=== PATIENT | female | born 1955 | race Caucasian/White ===

== ENCOUNTER 2016-08-16 13:21 | Observation (INO) ==
[2016-08-16] MEDS ORDERED: 0.9 % Sodium Chloride 1,000 ML IVC ONE (14:00)
--- NOTE | 2016-08-16 14:38 | Emergency Department Note ---
Disposition Clinical Impression: Tachycardia Chest pain Qualifiers: Chest pain type: unspecified Qualified Code(s): R07.9 - Chest pain, unspecified Disposition: Admitted As Inpatient Condition: Good Instructions: Chest Pain (ED) Referrals: Elda Graham CNP [Primary Care Provider] - Forms: Work/School Release, ED Satisfaction Letter Time of Disposition: 18:08 Syncope HPI - General Chief Complaint: ED General Medical Stated Complaint: Syncope,weakness, multiple complaints Time Seen by Provider: 08/16/16 13:37 Source: patient Mode of arrival: ambulatory Limitations: no limitations Nursing Notes Reviewed: Yes Vital Signs Reviewed: Yes - History of Present Illness HPI Narrative: Patient presents emergency room for evaluation of dizziness chest pressure and feeling like her heart is beating quickly. Patient was seen and evaluated at an outside facility on Monday and had a negative workup and was discharged home. Patient does not remember the details of that event. She had what she described as a syncopal event and underwent an outside emergency room for evaluation. Currently she is denying fevers chills nausea vomiting or diarrhea denies headache or vision changes main complaint chest pressure and dyspnea Pt Subjective Complaint: loss of consciousness Onset (ago): day(s) (3 days) Duration: second(s) Prodromal Symptoms: lightheaded Witnessed: no Context: at rest Injuries Sustained Associated with Event: none Current Symptoms: back to baseline History: none, prior work-ups Treatments prior to arrival: none - Related Data Allergies Allergy/AdvReac Type Severity Reaction Status Date / Time tramadol AdvReac See Verified 08/16/16 13:31 Comments All systems ED: reviewed and negative except as stated. Constitutional: Denies: fever Cardiovascular: Reports: chest pain, palpitations. Denies: dyspnea on exertion Respiratory: Denies: cough, dyspnea, wheezes Gastrointestinal: Denies: abdominal pain, nausea, vomiting, diarrhea Genitourinary: Denies: urgency, dysuria, frequency Musculoskeletal: Denies: back pain Neurological: Denies: headache Past Medical History - Past Medical History Attestation: Yes The following information was validated with the patient. Source: patient Medical history: Reports: hyperlipidemia, hypertension - Social History Smoking Status: Current every day smoker Physical Exam - General Limitations: no limitations General appearance: alert, in no apparent distress - Head Head exam: atraumatic, normocephalic, normal inspection - Neck Neck exam: Present: normal inspection, full ROM, trachea midline - Chest Chest inspection: Present: normal inspection, symmetric chest wall rise. Absent : tenderness - Respiratory Respiratory exam: Present: normal lung sounds bilaterally. Absent: respiratory distress, wheezes - Cardiovascular Cardiovascular exam: Present: normal rhythm, tachycardia, normal heart sounds. Absent: systolic murmur, diastolic murmur - Abdominal Exam Abdominal exam: Present: soft, Non-Tender, normal bowel sounds. Absent: tenderness, distention, guarding, rebound, rigidity, Peres's sign, Rovsing's sign, tenderness at McBurney's Point - Extremities Exam Extremities exam: Present: normal inspection, full ROM. Absent: tenderness - Back Exam Back exam: Present: normal inspection, full ROM. Absent: tenderness - Neurological Exam Neurological exam: Present: alert, oriented X3, CN II-XII intact, normal gait - Psychiatric Psychiatric exam: Present: normal affect, normal mood - Skin Skin exam: Present: warm, dry, intact, normal color Course Course Narrative: Patient seen and examined the time of arrival. See history of present illness. 61-year-old female presents emergency room with complaint of dizziness. She was seen in outside facility 3 days ago and had workup and evaluation for syncope. She was discharged home at that time the treatment of a lab abnormalities abnormalities as well as the syncopal event. Patient was discharged home and does not remember any of the workup or evaluation was done at the outside facility. She does describe a use of marijuana on a history of opioid abuse. She has not been receiving pain medication and has not used marijuana in over 3 weeks according to her. Patient presents here today with dizziness along with chest pressure and pain over the last 24 hours. She denies any trauma or injuries. She is alert and oriented 3. Head is atraumatic. Pupils are equal round reactive to light. Extraocular muscles are intact. She is in no specific acute distress at this time. Vital signs are reviewed she is tachycardic but otherwise the rest of her vitals are normal. She is afebrile. Abdomen soft nontender nondistended. She was all 4 extremities with purpose. She has palpable radial DP and PT pulses bilaterally. No signs of pitting edema. Patient to have cardiac evaluation chest x-ray EKG and troponin ordered this time. Urinalysis also ordered. Fluid hydration be given for possible dehydration. Patient will most likely need further evaluation and management. Disposition pending workup and treatment course - Reevaluation(s) Reevaluation #1: Labs are reviewed and are stable patient does not have any acute signs of infection. Troponin is negative. EKG shows sinus tachycardia with no other acute abnormalities. Patient at this point will have CT AngioJet performed for persistent tachycardia. No other acute pathology issues noted CT angiogram. Patient's heart rate has come down from 129 2 1:15 will continue to monitor repeat fluid boluses given as needed. Patient is concerning with medical history coronary artery disease as well as syncopal event and tachycardia. She will most likely require admission to the hospital. Discussion will be have the patient will see imaging study is resulted Time: 16:34 Reevaluation #2: Patient accepted by the hospitalist for evaluation of tachycardia and chest discomfort. Recommendation for aspirin and Lipitor started here in the emergency room. No other acute issues this time patient be completed with the admission process of this time Time: 18:05 Vital Signs Temperature 97.5 F L 08/16/16 13:28 Pulse Rate 129 08/16/16 13:28 Respiratory Rate 18 08/16/16 13:28 Blood Pressure 114/93 08/16/16 13:28 O2 Sat by Pulse Oximetry 98 08/16/16 13:28 Temperature 97.5 F L 08/16/16 13:28 Pulse Rate 85 08/16/16 16:55 Respiratory Rate 16 08/16/16 16:55 Blood Pressure 134/58 08/16/16 16:55 O2 Sat by Pulse Oximetry 96 08/16/16 16:55 Oxygen Delivery Oxygen Delivery Room Air Syncope - MDM Narrative Medical decision making narrative: Syncope, chest pain, tachycardia - Medical Records Medical records reviewed: Yes I reviewed the patient's medical records. - Lab Data Lab results reviewed: Yes I reviewed the patient's lab results. Result diagrams: 08/16/16 14:24 08/16/16 14:24 Lab Results 08/16/16 08/16/16 08/16/16 Range/Units 14:24 14:24 14:24 WBC 7.9 (4.3-11.1) K/mcL RBC 4.68 (3.82-4.97) M/mcL Hgb 14.2 (11.5-15.4) g/dL Hct 42.9 (35.3-44.9) % MCV 91.7 (83.0-100.0) fL MCH 30.3 (28.0-33.3) pg MCHC 33.1 (31.6-35.5) g/dL RDW 14.3 (11.5-14.5) % Plt Count 285 (140-400) K/mcL MPV 10.5 (9.4-12.4) fL Immature Gran % 0.8 (0-4) % Seg Neutrophils % 62.7 % Lymphocytes % 25.8 % Monocytes % 9.7 % Eosinophils % 0.1 % Basophils % 0.9 % Neutrophils # 5.0 (1.6-8.9) K/mcL Lymphocytes # 2.0 (0.6-4.6) K/mcL Monocytes # 0.8 (0.0-1.3) K/mcL Eosinophils # 0.0 (0.0-0.6) K/mcL Basophils # 0.1 (0.0-0.2) K/mcL PT 11.7 (9.4-12.1) Seconds INR 1.1 APTT 30.4 (26.0-36.0) Seconds Sodium 138 (136-145) mEq/L Potassium 3.5 (3.5-4.5) mEq/L Chloride 106 (98-109) mEq/L Carbon Dioxide 19 (19-29) mEq/L BUN 18 (7-20) mg/dL Creatinine 1.28 H (0.57-1.11) mg/dL Est GFR ( Amer) 51 L (> 60) Est GFR (Non-Af Amer) 42 L (> 60) BUN/Creatinine Ratio 14 (6-26) Glucose 201 H (70-99) mg/dL Calculated Osmolality 294 (280-300) Calcium 9.4 (8.6-10.8) mg/dL Troponin I (0-0.03) ng/mL Urine Color (Yellow) Urine Clarity (Clear) Urine pH (5.0-8.0) pH Units Ur Specific [place] (1.010-1.025) Urine Protein (Neg-Trace) mg/dL Urine Glucose (UA) (Normal) mg/dL Urine Ketones (Negative) mg/dL Urine Blood (Negative) Urine Nitrite (Negative) Urine Bilirubin (Negative) Urine Urobilinogen (Normal) mg/dL Ur Leukocyte Esterase (Negative) Urine Microscopic RBC Urine Microscopic WBC (0-3) per hpf Ur Squamous Epith Cells (None-Few) per lpf Urine Bacteria (None-Few) per hpf Hyaline Casts (None-Few) per lpf Urine Opiates Screen (Onitja=322) ng/mL Ur Barbiturates Screen (Phtrkf=155) ng/mL Ur Phencyclidine Scrn (Cutoff=25) ng/mL Ur Amphetamines Screen (Opujfb=4750) ng/mL U Benzodiazepines Scrn (Jwbwou=512) ng/mL Urine Cocaine Screen (Cutoff= 300) ng/mL U Marijuana (THC) Screen (Cutoff = 50) ng/mL 08/16/16 08/16/16 08/16/16 Range/Units 14:24 15:00 15:00 WBC (4.3-11.1) K/mcL RBC (3.82-4.97) M/mcL Hgb (11.5-15.4) g/dL Hct (35.3-44.9) % MCV (83.0-100.0) fL MCH (28.0-33.3) pg MCHC (31.6-35.5) g/dL RDW (11.5-14.5) % Plt Count (140-400) K/mcL MPV (9.4-12.4) fL Immature Gran % (0-4) % Seg Neutrophils % % Lymphocytes % % Monocytes % % Eosinophils % % Basophils % % Neutrophils # (1.6-8.9) K/mcL Lymphocytes # (0.6-4.6) K/mcL Monocytes # (0.0-1.3) K/mcL Eosinophils # (0.0-0.6) K/mcL Basophils # (0.0-0.2) K/mcL PT (9.4-12.1) Seconds INR APTT (26.0-36.0) Seconds Sodium (136-145) mEq/L Potassium (3.5-4.5) mEq/L Chloride (98-109) mEq/L Carbon Dioxide (19-29) mEq/L BUN (7-20) mg/dL Creatinine (0.57-1.11) mg/dL Est GFR ( Amer) (> 60) Est GFR (Non-Af Amer) (> 60) BUN/Creatinine Ratio (6-26) Glucose (70-99) mg/dL Calculated Osmolality (280-300) Calcium (8.6-10.8) mg/dL Troponin I 0.00 (0-0.03) ng/mL Urine Color Yellow (Yellow) Urine Clarity Cloudy A (Clear) Urine pH 5.5 (5.0-8.0) pH Units Ur Specific [place] 1.021 (1.010-1.025) Urine Protein 30 H (Neg-Trace) mg/dL Urine Glucose (UA) Normal (Normal) mg/dL Urine Ketones Negative (Negative) mg/dL Urine Blood Negative (Negative) Urine Nitrite Negative (Negative) Urine Bilirubin Negative (Negative) Urine Urobilinogen Normal (Normal) mg/dL Ur Leukocyte Esterase Small H (Negative) Urine Microscopic RBC Test Not Performed Urine Microscopic WBC 5-15 H (0-3) per hpf Ur Squamous Epith Cells Many H (None-Few) per lpf Urine Bacteria Many H (None-Few) per hpf Hyaline Casts Few (None-Few) per lpf Urine Opiates Screen Positive H (Hnnxhf=943) ng/mL Ur Barbiturates Screen Negative (Rtcicb=850) ng/mL Ur Phencyclidine Scrn Negative (Cutoff=25) ng/mL Ur Amphetamines Screen Negative (Fhlwqi=8206) ng/mL U Benzodiazepines Scrn Negative (Lanxfu=381) ng/mL Urine Cocaine Screen Negative (Cutoff= 300) ng/mL U Marijuana (THC) Screen Positive H (Cutoff = 50) ng/mL - Radiology Data Radiology results reviewed: Yes I reviewed the patient's radiology results. Chest x-ray is negative for acute pathology. CT of the head is negative for acute intracranial related issue. CT angios pending - EKG Data EKG attestation: Yes I reviewed and interpreted this EKG. EKG shows normal: sinus rhythm, axis, intervals, QRS complexes, ST-T waves Rate: tachycardia Rhythm: NSR [place]/QRS: normal When compared to previous EKG there are: no significant changes Interpretation: no acute changes, unchanged when compared to prior tracing (date )
[2016-08-16 14:47] LABS: Calcium 9.4 mg/dL (8.6-10.8); Potassium 3.5 mEq/L (3.5-4.5)
[2016-08-16 14:51] LABS: INR 1.1; Prothrombin Time 11.7 Seconds (9.4-12.1)
[2016-08-16 14:53] LABS: Activated Partial Thrombo Time 30.4 Seconds (26.0-36.0)
[2016-08-16 14:55] LABS: Basophils # 0.1 K/mcL (0.0-0.2); Basophils % 0.9 %; Eosinophils % 0.1 %; Hematocrit 42.9 % (35.3-44.9); Hemoglobin 14.2 g/dL (11.5-15.4); Immature Granulocytes % 0.8 % (0-4); Lymphocytes % 25.8 %; Mean Corpuscular HGB Conc 33.1 g/dL (31.6-35.5); Mean Corpuscular Hemoglobin 30.3 pg (28.0-33.3); Mean Corpuscular Volume 91.7 fL (83.0-100.0); Mean Platelet Volume 10.5 fL (9.4-12.4); Monocytes # 0.8 K/mcL (0.0-1.3); Monocytes % 9.7 %; Platelet Count 285 K/mcL (140-400); Red Blood Count 4.68 M/mcL (3.82-4.97); Red Cell Distribution Width 14.3 % (11.5-14.5); Segmented Neutrophils % 62.7 %
[2016-08-16 15:12] LABS: Bilirubin,Urine Negative (Negative); Blood,Urine Negative (Negative); Clarity,Urine Cloudy (Clear); Color,Urine Yellow (Yellow); Glucose,Urine (UA) Normal (Normal); Ketones,Urine Negative (Negative); Leukocyte Esterase,Urine Small (Negative); Nitrite,Urine Negative (Negative); PH,Urine 5.5 pH Units (5.0-8.0); Protein,Urine 30 mg/dL (Neg-Trace); Specific Gravity,Urine 1.021 (1.010-1.025); Urobilinogen,Urine Normal (Normal)
[2016-08-16 15:13] LABS: Bacteria,Urine Many per hpf (None-Few); Hyaline Casts,Urine Few per lpf (None-Few); Squamous Epithelial Cell,Urine Many per lpf (None-Few)
[2016-08-16 15:15] LABS: Amphetamine Screen,Urine Negative ng/mL (Cutoff=1000); Barbiturate Screen,Urine Negative ng/mL (Cutoff=200); Benzodiazepines Screen,Urine Negative ng/mL (Cutoff=200); Cannabinoid Screen,Urine Positive ng/mL (Cutoff = 50); Cocaine Screen,Urine Negative ng/mL (Cutoff= 300); Opiate Screen,Urine Positive ng/mL (Cutoff=300); Phencyclidine Screen,Urine Negative ng/mL (Cutoff=25)
--- NOTE | 2016-08-16 15:18 | Emergency Department Note ---
START Narrative - START START: I examined this patient and my medical decision-making was reviewed with the [employer]OC[employer]ATE/PA/Advanced Practice Nurse/Resident Physician. I agree with the documented findings, disposition and treatment plan as described except to the extent set forth below. ED attending note: Patient seen with emergency medicine resident Dr. Orozco. Please see a copy of his note for details of the H&P, evaluation, management and disposition of this patient. We independently had [id number] contact with the patient Briefly: A 61-year-old female sick blood so far a wall sitting down. Is awake and alert at this point in time. Workup in a bloodless ER down in [place] over the weekend. Patient's neurological nonfocal tachycardic at rest 129. Normotensive. Labs and imaging pending. Patient stable. Disposition pending
[2016-08-16] MEDS ORDERED: Aspirin 81 MG TAB.CHEW PO ONE (18:06)
[2016-08-16] MEDS ORDERED: *HR* Morphine 2 MG/ML SYRINGE IVP PRN (19:55)
[2016-08-16] MEDS ORDERED: Acetaminophen 325 MG TABLET PO PRN (19:55)
[2016-08-16] MEDS ORDERED: Ondansetron 4 MG/2 ML VIAL IVP PRN (19:55)
[2016-08-16] MEDS ORDERED: Naloxone 0.4 MG/ML INJ IVP PRN (19:55)
[2016-08-16] MEDS ORDERED: 0.9 % Sodium Chloride 1,000 ML IVC SCH (20:00)
--- NOTE | 2016-08-16 20:09 | Internal Med History&Physical ---
Date of Encounter: 08/16/16 Time of Encounter: 19:35 Assessment and Plan (1) Chest pain Current visit: Yes Status: Acute 1. Will cycle troponins, EKG's, and consult cardiology. 2. Pt had LHC several years ago -- negative by history. 3. Pt. will need evaluation of RA mass prior to any further ischemic cardiac work-up. Qualifiers: Chest pain type: precordial pain Qualified Code(s): R07.2 - Precordial pain (2) Atrial mass Current visit: Yes Status: Acute 1. Will order MRI chest per Radiology recommendations. 2. Will order ECHO; may need GURU. 3. Consult cardiology for further guidance in working up the mass. (3) Tachycardia Current visit: Yes Status: Acute 1. Will continue home dose of beta mekhi; pt denies missing any doses. 2. CTA negative for PE. 3. Will start radha IVF hydration and hold diuretics. 4. Monitor hemodynamics. (4) DVT prophylaxis Current visit: Yes Status: Acute 1. Heparin SQ. Internal Medicine - H&P: HPI Chief complaint: chest pain; racing heartbeat Admitted From: Emergency Dept Plans for Post Hospital Care: Home History of present illness: Ms. Ray is a 61 year old female who presents with a 3 to 4 -day history of chest pain, palpitations, racing heartbeats, and one episode of syncope. Because symptoms persisted and did not improve, she came to ER for evaluation. Workup in the ER was negative except for some resting tachycardia. As part of her workup she underwent CT angiogram of the chest, which was negative for pulmonary embolus. 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 She was subsequently admitted to the hospitalist service. Upon my assessment of the patient in the ER, patient is resting comfortably and has no chest pain or palpitations. She denies any dyspnea. She does have resting tachycardia with a heart rate in the 110's to 120s. She denies any nausea, lightheadedness, or dizziness. She did have one episode of syncope 4 days ago which appears to be vasovagal by history. She states she was sitting down and when she stood up, she became lightheaded and dizzy and passed out. She does not have a history of recurrent syncope. She states she follows with cardiology and had a heart catheterization several years ago which revealed only plaque disease. Of note, she has a positive urine drug screen for opiates and marijuana. She states she used to use drugs but no longer uses drugs. She states that she only used marijuana. She denies any IV drug abuse or any cocaine use. Past Med Surg Social Fam HX - Past Medical History Source: patient, old records reviewed Medical history: hyperlipidemia, hypertension, other (Polycystic Kidney Disease) Psychiatric history: no psych history - Past Surgical History Surgical History: ERUM/BSO, other (Left heart Cath -- no PCI or stent) - Social History Smoking Status: Current every day smoker Alcohol use: none Drug use: marijuana Current living situation: Home - Independent Activity Level: Independent ambulation - Family History Mother Living Status: Still Living Hx Family Cardiac Disorders: No Hx Family Respiratory Disorders: No Hx Family Neurologic Disorders: Yes (dementia) Father Living Status: Age at : 47 Cause of : CT Hx Family Cardiac Disorders: Yes Hx Family Respiratory Disorders: No Internal Medicine - H&P: Meds Aspirin 81 mg PO DAILY 08/16/16 [History] Cholecalciferol (D-3) [Vitamin D] 5,000 unit PO DAILY 08/16/16 [History] Cyclobenzaprine [Flexeril] 10 mg PO TID 08/16/16 [History] Gabapentin [Neurontin] 800 mg PO TID 08/16/16 [History] Hydrochlorothiazide 25 mg PO DAILY 08/16/16 [History] Lisinopril [Zestril] 10 mg PO DAILY 08/16/16 [History] Metoprolol [Lopressor] 25 mg PO BID 08/16/16 [History] Omeprazole [PriLOSEC] 40 mg PO DAILY 08/16/16 [History] Simvastatin [Zocor] 40 mg PO HS 08/16/16 [History] Allergies tramadol Adverse Reaction (Verified 08/16/16 13:31) See Comments Pt states her legs swell and she can't urinate when taking this medication - Constitutional Constitutional: no chills, no fever(s) - EENT Eyes: no blurry vision, no change in vision Ears: no ear pain, no tinnitus Nose, mouth and throat: no nasal congestion, no sinus pressure, no sore throat - Cardiovascular Cardiovascular ROS IM: chest pain, lightheadedness, palpitations, syncope, no dyspnea, no dyspnea on exertion, no edema, no irregular heart rhythm - Respiratory Respiratory: no cough, no dyspnea, no hemoptysis, no dyspnea on exertion, no wheezing - Gastrointestinal Gastrointestinal: no abdominal pain, no diarrhea, no hematemesis, no hematochezia, no melena, no vomiting - Genitourinary Genitourinary: no dysuria, no flank pain, no hematuria - Musculoskeletal Musculoskeletal ROS IM: back pain, no arthralgias, no joint swelling - Integumentary Integumentary IM: no rash, no jaundice - Neurological Neurological ROS: no focal weakness, no frequent falls, no headache(s) - Psychiatric Psychiatric: no anxiety, no depression - Endocrine Endocrine IM: no cold intolerance, no heat intolerance - Hematologic/Lymphatic Hematologic/Lymphatic: no easy bruising, no lymphadenopathy - Allergic/Immunologic Allergic/Immunologic: no wheezing, no GI upset with certain foods - Constitutional Vitals: Temp Pulse Resp BP Pulse Ox 97.5 F L 85 18 126/81 96 08/16/16 13:28 08/16/16 18:24 08/16/16 19:20 08/16/16 19:20 08/16/16 18:24 General appearance: Present: cooperative, A&O X 3, pleasant, no acute distress, answers questions appropriately - Head Head exam: Present: atraumatic, normal inspection - Expanded Head Exam Head exam expanded: Absent: abrasion, contusion, general tenderness - Eye Eye exam: Present: EOMI, normal appearance, PERRL. Absent: scleral icterus Pupils: Present: normal accommodation - ENT ENT exam: Present: mucous membranes moist, normal exam - Neck Neck exam general surgery: Present: full ROM, normal inspection, supple. Absent : lymphadenopathy, tenderness - Expanded Neck Exam Neck exam: Absent: carotid bruit - Respiratory Respiratory exam: Present: CTAB. Absent: chest wall tenderness, rales, respiratory distress, rhonchi, wheezes - Cardiovascular Cardiovascular exam: Present: RRR, +S1, +S2, tachycardia (HR 110's). Absent: diastolic murmur, JVD, systolic murmur - GI/Abdominal GI/Abdominal exam: Present: normal bowel sounds, soft. Absent: hepatomegaly, mass, splenomegaly, tenderness - Extremities Exam Extremities exam: Present: full ROM, normal capillary refill, warm. Absent: calf tenderness, joint swelling, pedal edema - Back Exam Back exam: Present: normal inspection. Absent: CVA tenderness (L), CVA tenderness (R) - Neurological Exam Neurological exam: Present: alert, CN II-XII intact, oriented X3, no focal deficits - Psychiatric Psychiatric exam: Present: normal affect, normal mood - Skin Skin exam: Present: dry, warm. Absent: rash Internal Med - H&P Results - Labs CBC & Chem 7: 08/16/16 14:24 08/16/16 14:24 - EKG Data -: EKG Interpreted by Myself EKG shows normal: sinus rhythm Rate: tachycardia - EKG Data Prior EKG available for review: yes When compared to previous EKG: there is no significant change EKG comments: 08/16/16 20:15 Sinus tachycardia; no acute findings otherwise - Diagnostic Studies Chest x-ray Status: image reviewed by me (lungs clear; negative)
[2016-08-16] MEDS: Gabapentin 400 MG CAPSULE PO SCH (21:14)
[2016-08-16] MEDS: *HR* Heparin 5,000 UNIT/ML VIAL SQ SCH (21:15)
[2016-08-17] MEDS ORDERED: 0.9 % Sodium Chloride 1,000 ML IVC ONE (00:39)
[2016-08-17 05:52] LABS: Basophils # 0.1 K/mcL (0.0-0.2); Basophils % 0.8 %; Eosinophils # 0.2 K/mcL (0.0-0.6); Eosinophils % 2.9 %; Hematocrit 37.7 % (35.3-44.9); Immature Granulocytes % 0.6 % (0-4); Lymphocytes % 41.3 %; Mean Corpuscular HGB Conc 31.6 g/dL (31.6-35.5); Mean Corpuscular Hemoglobin 29.5 pg (28.0-33.3); Mean Corpuscular Volume 93.5 fL (83.0-100.0); Monocytes # 0.9 K/mcL (0.0-1.3); Monocytes % 12.3 %; Neutrophils # 3.1 K/mcL (1.6-8.9); Platelet Count 230 K/mcL (140-400); Red Blood Count 4.03 M/mcL (3.82-4.97); Red Cell Distribution Width 14.4 % (11.5-14.5); Segmented Neutrophils % 42.1 %
[2016-08-17 05:55] LABS: Hemoglobin 11.9 g/dL (11.5-15.4)
[2016-08-17] MEDS: *HR* Heparin 5,000 UNIT/ML VIAL SQ SCH ×2 (06:01→17:40)
[2016-08-17 06:20] LABS: Chol/HDL Ratio 5.1 (0-4.9); Cholesterol 96 mg/dL (< 200); HDL Cholesterol 19 mg/dL (40-59); LDL Cholesterol,Calculated 50 mg/dL (0-99); Magnesium 1.7 mg/dL (1.6-2.6); Triglycerides 133 mg/dL (< 150)
[2016-08-17] MEDS: 0.9 % Sodium Chloride 1,000 ML IVC SCH ×3 (08:00→22:03)
[2016-08-17] MEDS: Cholecalciferol (D-3) 1,000 UNIT TABLET PO SCH (08:01)
[2016-08-17] MEDS: Aspirin 81 MG TAB.CHEW PO SCH (08:01)
[2016-08-17] MEDS: Gabapentin 400 MG CAPSULE PO SCH ×3 (08:01→22:03)
--- NOTE | 2016-08-17 08:38 | Cardiology Consult Note ---
<Fredis Bertrand - Last Filed: 08/17/16 09:33> Date of Encounter: 08/17/16 Time of Encounter: 08:33 Assessment and Plan (1) Atrial mass Current Visit: Yes Status: Acute CT scan showed: A fatty mass within the right atrium measuring 5.4 x 3.7 cm appears to be mildly enhancing and is suspicious for an atypical lipomatous tumor, possibly a liposarcoma. The mass is narrowing the superior vena cava and right superior pulmonary vein. Recommend nonemergent MRI for further evaluation A prominent right hilar lymph node measuring 1.8 x 1.7 cm is nonspecific and could be reactive or metastatic. TTE 01/2014 showed no evidence of right atrial mass. GURU is recommended for further evaluation. Indication, risk, and benefits discussed. Pt agrees. Pt has documented history of IV drug use but denies to me. Drug screen positive for opiates and marijuana. Check blood cultures to r/o endocarditis. She denies fevers or chills. WBC are normal. We will follow with you. (2) Chest pain Current Visit: Yes Status: Acute Troponin negative. Ekg shows ST with no ST changes. LHC in 2013 showed minimal CAD. Stress test was ordered for pre-operative clearance in the out-pt setting. We will hold off on stress test until further evaluation of right atrial mass. Qualifiers: Chest pain type: precordial pain Qualified Code(s): R07.2 - Precordial pain (3) Tachycardia Current Visit: Yes Status: Acute Now NSR. Likely hypovolemic, mild RIVERA. 24 hour telemetry shows avg HR 89 bpm. maximum was 140 [address]. No VT or significant bradycardia or pauses. Discussion w patient/family: The assessment and plan as outlined above was discussed with the patient and/or family members who expressed understanding and agreement. All questions were answered. Thank you for involving us in the care of your patient. Please call with any questions. History of Present Illness Consult date: 08/17/16 Requesting physician: Bertrand Vega Consult reason: Right atrial mass Chief complaint: Chest pain with exertion History of present illness: Ms. Ray is a 61 year old female with a history of hypertension, diabetes, HLD , and tobacco use who presents with chest pain for one week. She c/o intermittent, non-radiating, midsternal chest pressure that occurs with ambulation and stress. she associates her chest pain with mild SOB, diaphoresis , and nausea. She also c/o syncopal episode after walking to the bathroom one week ago. She was seen at an out hospital and discharged home with out-pt f/u. She denies any cardiac testing at that time. Previous cardiac testing: LHC 01/2014- minimal CAD, EF 55%, severe diastolic dysfunction. Elevated LVEDP at 40. TTE 01/2014-LVEF 60%. Normal left ventricular size and systolic function, mild diastolic dysfunction of the left ventricle. Normal right ventricular size and function. No significant valvular dysfunction. Mildly calcified noncoronary cusp.Estimated RVSP was 36 mmHg.Mild pulmonary hypertension. Past Med Surg Social Fam HX - Past Medical History Medical history: diabetes, hyperlipidemia, hypertension Psychiatric history: no psych history - Past Surgical History Surgical History: hysterectomy - Social History Smoking Status: Current every day smoker Alcohol use: none Drug use: marijuana - Family History Mother Living Status: Still Living Hx Family Cardiac Disorders: No Hx Family Respiratory Disorders: No Hx Family Neurologic Disorders: Yes (dementia) Father Living Status: Age at : 47 Cause of : [place] Hx Family Cardiac Disorders: Yes Hx Family Respiratory Disorders: No Medications and Allergies Aspirin 81 mg PO DAILY 08/16/16 [History] Cholecalciferol (D-3) [Vitamin D] 5,000 unit PO DAILY 08/16/16 [History] Cyclobenzaprine [Flexeril] 10 mg PO TID 08/16/16 [History] Gabapentin [Neurontin] 800 mg PO TID 08/16/16 [History] Hydrochlorothiazide 25 mg PO DAILY 08/16/16 [History] Lisinopril [Zestril] 10 mg PO DAILY 08/16/16 [History] Metoprolol [Lopressor] 25 mg PO BID 08/16/16 [History] Omeprazole [PriLOSEC] 40 mg PO DAILY 08/16/16 [History] Simvastatin [Zocor] 40 mg PO HS 08/16/16 [History] Allergies tramadol Adverse Reaction (Verified 08/16/16 13:31) See Comments Pt states her legs swell and she can't urinate when taking this medication All Systems Review: A 10-system review of systems was performed and is negative for pertinent findings except as documented above in the HPI. Physical Examination Vital Signs, Last 4 Hours Temp Pulse Resp BP Pulse Ox 08/17/16 07:24 97.8 F 84 16 107/75 95 08/17/16 04:58 97.9 F 89 14 108/76 95 General: Conversant, No Apparent Distress, Other (Obese female) HEENT: Atraumatic, Normocephaly, Mucus Membranes Moist, Other (Missing teeth) Neck: No JVD, Normal carotid pulses Cardiac: Reg Rate and Rhythm, Normal S1 and S2, No Murmur Lungs: Normal Breath Sounds, No Wheeze, Rales, Rhonchi Neuro: Alert and responsive, No focal deficits noted Abdomen: Soft, Non-Tender Skin: No rashes noted on visualized skin Musculoskeletal: No Chest Wall Tenderness Extremities: No Clubbing, No Cyanosis, No Edema, Normal Pulses Results 08/17/16 03:59 08/17/16 03:59 Lab Results 08/16/16 08/17/16 08/17/16 20:21 03:59 03:59 WBC 7.3 Hgb 11.9 D Hct 37.7 Plt Count 230 Magnesium Troponin I 0.01 0.01 08/17/16 03:59 WBC Hgb Hct Plt Count Magnesium 1.7 Troponin I Chest X-Ray 08/16/16 13:55 IMPRESSION: No acute cardiopulmonary disease. D/ / 08/16/2016 14:47:49 Mynor Saucedo MD / jesús Interpreting Provider: Mynor Saucedo MD Head CT 08/16/16 14:03 IMPRESSION: No acute intracranial abnormality. D/ / Roderick Bowen MD / Roderick Bowen MD Interpreting Provider: Roderick Bowen MD Chest CTA 08/16/16 15:33 IMPRESSION: 1. No evidence of pulmonary embolism or acute pulmonary abnormality. 2. A fatty mass within the right atrium measuring 5.4 x 3.7 cm appears to be mildly enhancing and is suspicious for an atypical lipomatous tumor, possibly a liposarcoma. The mass is narrowing the superior vena cava and right superior pulmonary vein. Recommend nonemergent MRI for further evaluation 3. A prominent right hilar lymph node measuring 1.8 x 1.7 cm is nonspecific and could be reactive or metastatic. 4. Mild emphysema. RECOMMENDATIONS: Nonemergent MRI of the chest. D/ / 08/16/2016 16:56:40 El Chen MD / Cathryn Michel Interpreting Provider: El Chen MD - Imaging and Cardiology Echo: report reviewed (02/08/2014-LVEF 60%. Normal left ventricular size and systolic function. There is evidence of mild diastolic dysfunction of the left ventricle. Normal right ventricular size and function. No significant valvular dysfunction. Mildly calcified noncoronary cusp Estimated RVSP was 36 mmHg. Mild pulmonary hypertension. Clinical correlation is suggested.) Cardiac cath: report reviewed Consult Discharge Plan - Plan Referrals: Elda Graham, LICENSED CLINICIAN [Primary Care Provider] - <Pelon Meier - Last Filed: 08/17/16 09:59> Date of Encounter: 08/17/16 Assessment and Plan Discussion w patient/family: The assessment and plan as outlined above was discussed with the patient and/or family members who expressed understanding and agreement. All questions were answered. Thank you for involving us in the care of your patient. Please call with any questions. History of Present Illness History of present illness: Ms. Ray is a 61 year old female All Systems Review: A 10-system review of systems was performed and is negative for pertinent findings except as documented above in the HPI. Physical Examination Vital Signs, Last 4 Hours Temp Pulse Resp BP Pulse Ox 08/17/16 07:24 97.8 F 84 16 107/75 95 Results 08/17/16 03:59 08/17/16 03:59 Lab Results 08/16/16 08/17/16 08/17/16 20:21 03:59 03:59 WBC 7.3 Hgb 11.9 D Hct 37.7 Plt Count 230 Sodium Potassium Chloride Carbon Dioxide BUN Creatinine Glucose Calcium Magnesium Troponin I 0.01 0.01 08/17/16 03:59 WBC Hgb Hct Plt Count Sodium 142 Potassium 3.3 L Chloride 110 H Carbon Dioxide 20 BUN 16 Creatinine 0.97 Glucose 113 H Calcium 8.2 L Magnesium 1.7 Troponin I - Attending Attestation For this encounter, I have reviewed the EGG PROCESSING SUPERVISOR or PA documentation, treatment plan, and medical decision making; and I have had face to face time with this patient. pt gives a history of CP, sob, and platypnea does give a history of night sweats and weight loss CT scan showed a RA mass compressing SVC and PV Pt 's cath showed non obstructive CAD: according to pt VSS Lungs; clear to auscultation and precussion CVS: RRR Ext Warm, no edema EKG reviewed by me shows no acute changes, non specficic ST T changes plan: GURU today check blood cultures no indications for cath at present Thank you
[2016-08-17 09:11] LABS: BUN/Creatinine Ratio 16 (6-26); Blood Urea Nitrogen 16 mg/dL (7-20); Calcium 8.2 mg/dL (8.6-10.8); Carbon Dioxide 20 mEq/L (19-29); Chloride 110 mEq/L (98-109); Glucose 113 mg/dL (70-99); Osmolality,Calculated 296 (280-300); Potassium 3.3 mEq/L (3.5-4.5); Sodium 142 mEq/L (136-145); eGFR For African Americans > 60 (> 60); eGFR For Non-African Americans 58 (> 60)
--- NOTE | 2016-08-17 10:29 | Electrocardiograph Report ---
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
--- NOTE | 2016-08-17 11:37 | ECHO - Doppler Report ---
Echocardiogram Name: Adriana Ray Date of Study: 08/17/2016 Date: 1955 Ht: 64.0 in Medical Record#: [id number] Age: 61 Wt: 201.0 lb Gender: Female BSA: 1.96 Order #: [id number] Location: [facility] Room #: [employer] [facility] [place] Physician: Aki Batista DO, NAHUM, CAREY DAHL Lead Network Engineer: Keyur Pacheco RDCS Ordering Physician: Bertrand Vega MD Primary Physician: Elda Graham CNP Indications: Right atrial mass Impressions: LVEF 60-65%. Normal LV chamber size, wall thickness and function. Mild left ventricular diastolic dysfunction. Normal right ventricular structure and function. Normal right atrial size. No obvious right atrial mass identified. Prominent lipomatous appearing interatrial septum. Mild aortic regurgitation. No evidence of pulmonary hypertension. Consider a GURU to further evaluate if clinically indicated. Left Ventricular Wall Motion: Rest Echo Findings All wall segments showed normal motion. Findings: Study Quality * Technically adequate exam. ECG Findings * Normal sinus rhythm. Left Ventricle * LVEF 60-65%. * Normal LV chamber size, wall thickness and function. * Mild left ventricular diastolic dysfunction. Right Ventricle * Normal right ventricular structure and function. Left Atrium * Normal left atrial size. Right Atrium * Normal right atrial size. No obvious right atrial mass identified. Interatrial Septum * Lipomatous appearing interatrial septum. * No evidence of interatrial shunting by color Doppler. Aortic Valve * Trileaflet aortic valve. * Focally calcified noncoronary cusp. * Mild aortic regurgitation. * No aortic stenosis. Mitral Valve * Normal mitral valve structure and function. * No mitral stenosis. * Trace mitral regurgitation. Tricuspid Valve * Normal tricuspid valve structure and function. * Trace tricuspid regurgitation. * No evidence of pulmonary hypertension. Pulmonic Valve * Normal pulmonic valve structure and function. * No pulmonic regurgitation. Aorta * Normally sized aortic root. Pericardium * The pericardium appears normal. IVC * Normal IVC dimensions and inspiratory collapse. Pulmonary Artery * Normal visualized portions of the main pulmonary artery. History Hypertension Hypercholesteremia History of Smoking Years 50 Packs 1 Family History of CAD History of CAD/PTCA 02/08/14 a Previous Echo was performed. Measurements: BP: 107/ 75 2D Normal Values RVIDd: 2.46 cm <2.7 cm IVSd: 1.10 cm 0.6 - 1.0 cm LVIDd: 4.67 cm 3.7 - 5.6 cm LVPWd: 1.10 cm 0.6 - 1.1 cm LVIDs: 2.76 cm 1.5 - 3.6 cm AO: 2.40 cm < 4.0 cm LA: 3.60 cm 2.0 - 4.0cm %FS: 40.90 cm >25 % LA volume: 55 Mitral Valve Peak E:.86 m/sec Peak A:1.16 m/sec E/A Ratio:0.7 Peak E' Lat Boni:8.7 cm/s Peak E' Med Boni:5.11 cm/s E/E' Lat Ratio:9.9 E/E' Med Ratio:16.9 Aortic Valve AI pressure Half-time: 382.00 msec Tricuspid Valve TV Regurg Peak Grad: 18.00mmHg TV Regurg Peak Boni: 2.14m/sec Updated by Aki Batista DO, NAHUM, CAREY DAHL on 08/17/2016 11:30:22 AM electronically signed on 08/17/2016 11:33:55 AM with status of Final Wall Motion Parks: 1=Normal, 2=Hypokinesis, 3=Akinesis, 4=Dyskinesis, 5=Aneurysmal, 6=Hyperkinetic, X=Not Visualized (Blank)=Missing
--- NOTE | 2016-08-17 15:05 | Internal Med Progress Note ---
Date of Encounter: 08/17/16 Time of Encounter: 14:45 - Assessment and plan (1) Chest pain Current Visit: Yes Status: Acute Assessment and plan: Improved. Troponins negative. Cardiology consulted. Recommend evaluation of atrial abnormality for any stress test. Qualifiers: Chest pain type: precordial pain Qualified Code(s): R07.2 - Precordial pain (2) Atrial mass Current Visit: Yes Status: Acute Assessment and plan: 2-D echocardiogram does not show any mass. Prominent interatrial septum visualized. Cardiology recommends transesophageal echocardiogram for further evaluation. Moderate risk for complications (3) DVT prophylaxis Current Visit: Yes Status: Acute (4) Tachycardia Current Visit: Yes Status: Resolved Assessment and plan: Sinus tachycardia - Subjective Interval history: Patient is feeling better today her chest pain is improving. She denies any shortness of breath. No nausea or vomiting. No dizziness or light. No palpitations. - Constitutional Vitals: Temp Pulse Resp BP Pulse Ox 98.0 F 85 16 123/77 97 08/17/16 11:19 08/17/16 11:19 08/17/16 11:19 08/17/16 11:19 08/17/16 11:19 General appearance: Present: cooperative, A&O X 3, pleasant, no acute distress, answers questions appropriately - Respiratory Respiratory exam: Present: CTAB. Absent: accessory muscle use, rales, rhonchi, wheezes - Cardiovascular Cardiovascular exam: Present: RRR, +S1, +S2. Absent: diastolic murmur, gallop, rubs, systolic murmur - GI/Abdominal GI/Abdominal exam: Present: normal bowel sounds, soft, no peritoneal signs. Absent: distended, tenderness - Extremities Exam Extremities exam: Present: warm, radial pulses palpable and symetrical. Absent : calf tenderness, cyanotic, pedal edema Internal Medicine: Result - Labs CBC & Chem 7: 08/17/16 03:59 08/17/16 03:59 Labs: Short CBC 08/17/16 Range/Units 03:59 WBC 7.3 (4.3-11.1) K/mcL Hgb 11.9 D (11.5-15.4) g/dL Hct 37.7 (35.3-44.9) % Plt Count 230 (140-400) K/mcL Neutrophils # 3.1 (1.6-8.9) K/mcL BMP 08/17/16 03:59 Sodium 142 Potassium 3.3 L Chloride 110 H Carbon Dioxide 20 BUN 16 Creatinine 0.97 Glucose 113 H Calcium 8.2 L Cardiac Enzymes 08/16/16 08/17/16 Range/Units 20:21 03:59 Troponin I 0.01 0.01 (0-0.03) ng/mL - ABG Interpretation ABG results: PT/INR, D-dimer PT 11.7 Seconds (9.4-12.1) 08/16/16 14:24 Consult Discharge Plan - Plan Referrals: Elda Graham, ADJUNCT SOCIOLOGY PROFESSOR [Primary Care Provider] - - Attending Attestation This document has been at least partially created by [employer] recognition technology by Dr. Ryder. Errors in grammar, wording or other phrases may exist. If errors are found after the documentation is signed, they will be addressed individually in the addendum section of this document when appropriate.
[2016-08-18] MEDS: 0.9 % Sodium Chloride 1,000 ML IVC SCH (05:37)
[2016-08-18] MEDS: *HR* Heparin 5,000 UNIT/ML VIAL SQ SCH (05:38)
[2016-08-18] MEDS ORDERED: Tetracaine/Benzocaine/Butamben 200MG/SPRAY (100SPY/BOT) MM ONE (09:21)
[2016-08-18] MEDS ORDERED: 0.9 % Sodium Chloride 500 ML IVC ONE (09:21)
[2016-08-18] MEDS: *HR* FentaNYL (PF) 100 MCG/2 ML VIAL IVP PRN ×2 (10:20→10:25)
[2016-08-18] MEDS: *HR* Midazolam HCl 5 MG/5 ML VIAL IVP PRN ×3 (10:20→10:30)
--- NOTE | 2016-08-18 13:37 | Event Note ---
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 The mass is narrowing the superior vena cava and right superior pulmonary vein. Recommend nonemergent MRI for further evaluation. A prominent right hilar lymph node measuring 1.8 x 1.7 cm is nonspecific and could be reactive or metastatic. TTE yesterday showed EF 60-65%, no obvious right atrial mass. Did show lipomatous appearing inferolateral septum, enlarged superior portion. GURU was recommended and completed today. GURU confirms the lipomatous septum. It also reveals right atrial mass--unclear what the mass is. Recommend outpt cardiac MRI to further evaluate. Will coordinate order through cardiology office and get this scheduled with outpt follow-up after MRI is completed. Cardiology is signing off. Reconsult PRN. Okay for D/C from a cardiac standpoint.
[2016-08-18] MEDS: Gabapentin 400 MG CAPSULE PO SCH ×2 (13:44→14:23)
--- NOTE | 2016-08-18 14:42 | Discharge Summary ---
Date of Encounter: 08/18/16 Time of Encounter: 12:45 - Discharge Diagnosis (1) Chest pain Priority: Primary Status: Acute Qualifiers: Chest pain type: precordial pain Qualified Code(s): R07.2 - Precordial pain (2) Atrial mass Priority: Secondary Status: Acute (3) DVT prophylaxis Priority: Secondary Status: Acute (4) Tachycardia Priority: Secondary Status: Resolved - Discharge Medications Home Medications: Aspirin 81 mg PO DAILY 08/16/16 [History] Cholecalciferol (D-3) [Vitamin D] 5,000 unit PO DAILY 08/16/16 [History] Cyclobenzaprine [Flexeril] 10 mg PO TID 08/16/16 [History] Gabapentin [Neurontin] 800 mg PO TID 08/16/16 [History] Hydrochlorothiazide 25 mg PO DAILY 08/16/16 [History] Lisinopril [Zestril] 10 mg PO DAILY 08/16/16 [History] Metoprolol [Lopressor] 25 mg PO BID 08/16/16 [History] Omeprazole [PriLOSEC] 40 mg PO DAILY 08/16/16 [History] Simvastatin [Zocor] 40 mg PO HS 08/16/16 [History] Allergies/Adverse Reactions: Allergies tramadol Adverse Reaction (Verified 08/16/16 13:31) See Comments Pt states her legs swell and she can't urinate when taking this medication Procedures/tests Complete & Pending: Procedures Performed prior 72 hours Category Date Time Status ECG 12 lead ECG [ECG] AM 0600 Y 08/17/16 06:00 Ordered EV GURU transesophageal echo Routine Y 08/18/16 09:27 Completed EV echocardiogram Routine Y 08/17/16 19:55 Completed Date of admission: 08/16/16 18:17 Primary care physician: Elda Graham CNP Consults: 08/16/16 19:58 Consult to Physician [CONS] Routine Consulting Provider: Pelon Meier Reason for Consult: chest pain; tachycardia; atrial tumor Call Completed: No 08/17/16 07:24 Consult to Cardiology [CONS] Routine Comment: Consulting Provider: Sonal Mora Reason for Consult: Atrial tumor on CT Time Notified: 07:25 Call Completed: Yes Discharging clinician: Roney Ryder Anticipated date of discharge: 08/18/16 - Patient Status Disposition: Home, Self-Care Condition: Good Functional capacity at discharge: independent ambulation Overall status at discharge: patient is progressing back to baseline - Discharge Instructions Instructions: Chest Pain (DC) Follow Up With: Elda Graham CNP [Primary Care Provider] - Additional Instructions: Follow-up with cardiology in 1-2 weeks - Diet and Activity Activity: increase activity as tolerated Diet: advance to your usual diet, low fat, low cholesterol, low salt diet Hospital course: Ms. Ray is a 61 year old female with history of hypertension and hyperlipidemia who presented to the ER with complaints of chest pain, palpitations and an episode of syncope. She was evaluated in the ER and was found to have sinus tachycardia. She received IV fluids. Her tachycardia has since improved. She underwent a CT angiogram of the chest which showed a possible atrial mass. Cardiology was consulted. Patient's troponins were trended. They have been negative so far. Cardiology recommended transesophageal echocardiogram after transthoracic echocardiogram did not show any mass but showed a lipomatous interatrial septum. The transesophageal echocardiogram done today showed possible atrial mass. Cardiac MRI has been recommended and inspecting supervisor making arrangements for that to be done as outpatient. Currently the patient is chest pain-free. She is feeling much better and is stable to be discharged home with outpatient follow up with cardiology. Patient is a chronic smoker and has been counseled to quit smoking. She may need a stress test as outpatient after her cardiac MRI. - Time Spent with Patient Total time spent providing and/or coordinating discharge services: Greater than 30 minutes (35 min) - Constitutional Vitals: Temp Pulse Resp BP Pulse Ox 97.9 F 102 16 138/90 98 08/18/16 11:29 08/18/16 11:29 08/18/16 11:29 08/18/16 11:29 08/18/16 11:29 General appearance: Present: cooperative, A&O X 3, pleasant, no acute distress, answers questions appropriately - Respiratory Respiratory exam: Present: CTAB. Absent: accessory muscle use, rales, rhonchi, wheezes - Cardiovascular Cardiovascular exam: Present: RRR, +S1, +S2. Absent: diastolic murmur, gallop, rubs, systolic murmur - GI/Abdominal GI/Abdominal exam: Present: normal bowel sounds, soft, no peritoneal signs. Absent: distended, tenderness - Extremities Exam Extremities exam: Present: warm, radial pulses palpable and symetrical. Absent : calf tenderness, cyanotic, pedal edema - Neurological Exam Neurological exam: Present: CN II-XII intact, oriented X3, no focal deficits. Absent: pronater drift, facial droop, speech deficit - Attending Attestation This document has been at least partially created by [employer] recognition technology by Dr. Ryder. Errors in grammar, wording or other phrases may exist. If errors are found after the documentation is signed, they will be addressed individually in the addendum section of this document when appropriate.
[2016-08-18 15:47] VITALS: BP 138/86
[2016-08-18] MEDS: Cholecalciferol (D-3) 1,000 UNIT TABLET PO SCH (15:54)
[2016-08-18] MEDS: Aspirin 81 MG TAB.CHEW PO SCH (15:54)
--- NOTE | 2016-08-18 17:24 | ECHO - Doppler Report ---
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 Just above the lipomatous hypertrophy there is an interatrial septal mass that is 3.8 cm in width. This is not fully visualized. Recommend Cardiac MRI for further evaluation. Medication Given: Time Medication Dose Units Route 10:20 Versed 1 mg IV 10:20 Fentanyl 25 mcg IV 10:25 Versed 1 mg IV 10:25 Fentanyl 25 mcg IV 10:30 Versed 2 mg IV Contrast Type Amount Agitated saline 10 Findings: Study Quality * Technically adequate exam. ECG Findings * Normal sinus rhythm Left Ventricle * Normal size and function. Right Ventricle * The right ventricle was normal in size and systolic function. Left Atrium * Within normal limits. * LA appendage is normal in appearance. * The LA appendage flow velocity is normal. Right Atrium * Within normal limits. Interatrial Septum * No evidence of patent foramen ovale. * The thickening of interatrial septum suggested lipomatous hypertrophy. * There is a interatrial septal mass measuring 3.8 cm just above the lipomatous area. Aortic Valve * The aortic valve is Tricuspid. * Trace/trivial aortic regurgitation. Mitral Valve * Normal structure. * Mild mitral regurgitation. Tricuspid Valve * Poor visualization. * no tricuspid regurgitation. Pulmonic Valve * Not well visualized. * No pulmonic regurgitation. Pulmonary Veins * Not visualized. Procedure Summary: After explaining the risks, benefits, and alternatives of the procedure to the patient in detail and answering all questions to satisfaction, an informed consent was obtained in writing. The patient was NPO for the six hours prior to the procedure. The patient denied dysphagia, odynophagia, and loose teeth. The patient was monitored with periodic automated blood pressures and continuous pulse oximetry and telemetry. Continuous oxygen was administered by OR. The patient was placed in the full upright position and the posterior oropharynx was anesthetized as above and complete suppression of the gag reflex was obtained. The patient was then placed in the left lateral decubitus position, the neck was flexed, and a bite block was placed in the patient's mouth. IV sedation was administered. Once adequate sedation was achieved, a well-lubricated anteflexed multipoint intraesophageal echocardiographic probe was inserted into the midline posterior oropharynx. Gentle pressure was applied as the patient swallowed and the esophagus was intubated without difficulty. The scope was advanced to the mid esophagus without encountering resistance. Images were obtained from the mid and upper esophagus. Images from the gastric globe were obtained. The intra-atrial septum was assessed by color-flow Doppler and agitated saline. The scope was then rotated approximately 180 degrees and withdrawn, visualizing the length of the aorta. The scope was then slowly withdrawn as the patient was continually suctioned. The patient tolerated the procedure well. Complications: None History: Hypertension Diabetes Hypercholesteremia History of Smoking Years 50 Packs 1 Family History of CAD Previous Echo08/17/2016 BP 122 / 94 Updated by Dulce Rodriguez on 08/18/2016 5:18:00 PM electronically signed on 08/18/2016 5:19:42 PM with status of [place]: 1=Normal, 2=Hypokinesis, 3=Akinesis, 4=Dyskinesis, 5=Aneurysmal, 6=Hyperkinetic, X=Not Visualized (Blank)=Missing
== END 2016-08-18 16:35 | disposition home or self-care (01) ==
LOC: EMEROO 13:21 → 3BNU 13:21 → SUATTDRO 18:17 → 3BNU 19:49
PROVIDERS: ADMIT Internal Medicine; ATTEND Internal Medicine